=== PATIENT | female | born 1995 | race Caucasian/White ===

== ENCOUNTER 2018-01-24 20:27 | Emergency (ER) | payer OTHER ==
[~2018-01-24] VITALS: Ht 170.2 cm; Wt 127.3 kg
[2018-01-24] MEDS ORDERED: QUET25TA PO (21:20)
[2018-01-24] MEDS ORDERED: CYCLOBENZAPRINE HCL 10 MG TABLET PO ONE (22:15)
[2018-01-24 22:22] VITALS: BP 111/79
== END 2018-01-24 22:44 | disposition home or self-care (01) ==
LOC: EMS 20:30
DX: M62.838 Other muscle spasm (principal); R51 Headache; R20.2 Paresthesia of skin; R20.0 Anesthesia of skin; Z98.84 Bariatric surgery status; Z88.2 Allergy status to sulfonamides; Z88.8 Allergy status to other drugs, medicaments and biological substances; Z91.041 Radiographic dye allergy status; Z91.013 Allergy to seafood
CPT/HCPCS: 99283